=== PATIENT | male | born 1990 | race American Indian/Alaskan Native ===

== ENCOUNTER 2019-05-20 22:23 | Inpatient (IN) | payer MEDICARE, MEDICAID, SELFPAY ==
[2019-05-20 22:23] VITALS: BP 122/75; PULSE 71; RESP 18; TEMP 37.3; O2SAT 98
[2019-05-21] VITALS (10 sets, daily range): BP systolic 108–131; BP diastolic 52–65; PULSE 72–92; RESP 16–20; TEMP 36.8–37.9; O2SAT 96–99; BMI 22.6
[2019-05-21] MEDS: ONDANSETRON 4 MG ODT SL (00:06)
--- NOTE | 2019-05-21 01:59 | DI.CT.S_ITS ---
PROCEDURE: CT FACIAL BONES W CON INDICATIONS: swollen right upper eye with multiple facial abrasions TECHNIQUE: After the administration of intravenous contrast, 2.5 mm axial sections acquired from the mid-neck to the frontal sinuses, with coronal and sagittal reformats. For radiation dose reduction, the following was used: automated exposure control, adjustment of mA and/or kV according to patient size. COMPARISON: None. FINDINGS: Image quality: Excellent. Soft tissues: There is marked soft tissue edema with mild skin thickening involving the right periorbital soft tissues and bridge of the nose without organized fluid collection/abscess formation. The retrobulbar structures are unremarkable. Inflammatory changes are preseptal in location. Orbits and globes are intact. Normal appearance of the extraocular muscles. No enlarged lymph nodes. Vascular: Visualized vascular structures appear patent throughout. Bony vascular foramina and canals appear normal. Bones: Facial bones appear intact, without fractures, erosions, or destruction. Visualized portions of the skull base and auditory canals also appear normal. Sinuses: Mild mucosal thickening of the left maxillary sinus. Minimal right maxillary sinus because of thickening. Remainder of the paranasal sinuses appear clear. Mastoid air cells are well-aerated. The ostiomeatal complex is patent bilaterally with small left-sided spurring of the osseous nasal septum. IMPRESSION: 1. Findings compatible with right periorbital cellulitis. No abscess formation. 2. Mild left and minimal right bilateral maxillary sinus disease. No significant discrepancy with the shift superintendent radiology preliminary report. Dictated by: Giorgi Garner M.D. on 05/21/2019 at 7:33 Approved by: Giorgi Garner M.D. on 05/21/2019 at 7:42
[2019-05-21 02:49] LABS: Add Manual Diff / Slide Review NO; Basophils Absolute Auto 0 /uL (0-100); Basophils Percent Auto 0.5 % (0-2); Eosinophils Absolute Auto 100 /uL (0-450); Eosinophils Percent Auto 1.1 % (2-4); Hemoglobin 13.8 g/dL (13.5-17.5); Lymphocytes Absolute Auto 2200 /uL (1100-4500); Lymphocytes Percent Auto 29.3 % (25-40); Mean Corpuscular HGB Conc 33.5 % (30-36); Mean Corpuscular Hemoglobin 28.2 PG (26-34); Mean Corpuscular Volume 83.9 fL (80-100); Monocytes Absolute Auto 600 /uL (0-900); Monocytes Percent Auto 8.7 % (3-14); Neutrophils Absolute Auto 4400 /uL (1500-7000); Neutrophils Percent Auto 60.4 % (50-75); Platelet Count 220 X10^3/uL (150-400); Red Blood Cell Count 4.88 X10^6/uL (4.5-5.9); Red Cell Distribution Width 13.4 % (11.6-14.8); White Blood Cell Count 7.4 X10^3/uL (4.5-11.0)
[2019-05-21] MEDS: VANCOMYCIN 1,000 MG/200 ML PIGGYBACK 200 MG IV ×3 (02:52→18:57)
[2019-05-21] MEDS: KETOROLAC 60 MG/2 ML VIAL 30 MG IV (02:53)
[2019-05-21 03:06] LABS: Alanine Aminotransferase 12 IU/L (<50); Albumin 4.2 g/dL (3.5-5.0); Albumin Globulin Ratio 1.3 (1.0-2.8); Alkaline Phosphatase 65 U/L (38-126); Aspartate Aminotransferase 26 IU/L (17-59); BUN Creatinine Ratio 15.7 (6-22); Bilirubin Total 0.6 mg/dL (0.2-1.3); Blood Urea Nitrogen 11 mg/dL (9-20); C-Reactive Protein Quant 1.4 mg/dL (<1.0); Calcium 9.3 mg/dL (8.4-10.2); Carbon Dioxide 29 mmol/L (22-32); Chloride 101 mmol/L (98-107); Creatine Kinase 153 U/L (55-170); Estimated Glomerular Filt Rate > 60.0 mL/min (>60); Globulin 3.2 g/dL (1.7-4.1); Glucose 101 mg/dL (70-100); HEMOLYSIS < 15 (0-50); Sodium 139 mmol/L (137-145); Total Protein 7.4 g/dL (6.3-8.2)
[2019-05-21 03:08] LABS: Erythrocyte Sedimentation Rate 10 MM/HR (0-15)
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
[2019-05-21] MEDS: methylPREDNISolone 125 MG/2 ML VIAL IV (04:45)
[2019-05-21] MEDS: CEFTRIAXONE 2 GM/50 ML FROZ.PIGGY IV (05:21)
[2019-05-21] MEDS: metroNIDAZOLE 1,000 MG/200 ML PIGGYBACK 200 MG IV (06:07)
--- NOTE | 2019-05-21 08:38 | PC.NURSE ---
pt sleeping, with symmetrical respirations, infusing antibiotic.
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
[2019-05-21 11:20] LABS: Add Manual Diff / Slide Review NO; Basophils Absolute Auto 0 /uL (0-100); Basophils Percent Auto 0.1 % (0-2); Eosinophils Absolute Auto 0 /uL (0-450); Eosinophils Percent Auto 0.3 % (2-4); Lymphocytes Absolute Auto 500 /uL (1100-4500); Lymphocytes Percent Auto 6.8 % (25-40); Mean Corpuscular HGB Conc 33.2 % (30-36); Mean Corpuscular Volume 84.3 fL (80-100); Monocytes Absolute Auto 100 /uL (0-900); Monocytes Percent Auto 0.9 % (3-14); Neutrophils Absolute Auto 7100 /uL (1500-7000); Neutrophils Percent Auto 91.9 % (50-75); Platelet Count 224 X10^3/uL (150-400); Red Blood Cell Count 4.98 X10^6/uL (4.5-5.9); Red Cell Distribution Width 13.9 % (11.6-14.8); White Blood Cell Count 7.7 X10^3/uL (4.5-11.0)
[2019-05-21] MEDS: AMPICILLIN/SULBACTAM 3 GM 3 GM in SODIUM CHLORIDE 0.9% 100 ML IV ×3 (11:47→22:33)
[2019-05-21] MEDS: OXYCODONE/ACETAMINOPHEN 5/325 TABLET 2 TAB PO ×3 (12:50→21:33)
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
[2019-05-21 18:29] LABS: Bacteria Urine None Seen
[2019-05-21 18:39] LABS: Culture Indicated Urine Cult Not Indicated; RBC Urine 0-1/HPF (0-5/HPF); Squamous Epithelial Cell Urine 0-1 /HPF (0-5/HPF); WBC Urine 0-1/HPF (0-5/HPF)
--- NOTE | 2019-05-21 19:57 | PC.NURSE ---
A&OX4. pain controlled with with percocet. R.eye periorbital edema offered ice pack, pt refused. R.eye lid is pink, slightly warm to touch. independent in his room.
[2019-05-21] MEDS: ACETAMINOPHEN 325 MG TABLET 650 MG PO (20:03)
[2019-05-22] MEDS: VANCOMYCIN 1,000 MG/200 ML PIGGYBACK 200 MG IV ×3 (00:13→11:46)
[2019-05-22] MEDS: OXYCODONE/ACETAMINOPHEN 5/325 TABLET 2 TAB PO (01:53)
[2019-05-22] MEDS: AMPICILLIN/SULBACTAM 3 GM 3 GM in SODIUM CHLORIDE 0.9% 100 ML IV ×2 (04:57→10:18)
[2019-05-22 05:57] LABS: Vancomycin Trough 14.3 ug/mL (10-20)
[2019-05-22] MEDS: HYDROCODONE/ACET 5/325 TABLET 1 TAB PO ×2 (06:02→10:34)
[2019-05-22 07:47] VITALS: BP 105/58; PULSE 72; RESP 14; TEMP 36.6; O2SAT 97
[2019-05-22 11:56] VITALS: BMI 22.6
--- NOTE | 2019-05-22 12:36 | PM.DS.1 ---
History of Present Illness History of Present Illness Date Patient Seen: 05/22/19 Time Patient Seen: 12:36 Chief complaint: Rt eye infection Narrative: As per Dr. Lopez, The patient is a 29-year-old male with no prior past medical history who presents with right eye swelling and pain. Patient states he was bit by a bug about 2 days prior to admission. He expressed pus from the area. Then he noted swelling and redness of the eyelid. He presented to the emergency department for incision and drainage. He denies any trauma to the eyelid. The patient did undergo CT scanning of the right eye. There was no evidence of abscess. There was no evidence of orbital involvement. The CT of the eye revealed preseptal cellulitis. The patient is admitted to the hospital for IV antibiotics and ongoing treatment. He does report having some dull pain in the right eye. He has had no fever although here noted to have a temperature of 99?. He denies any nausea vomiting or diarrhea. He cannot recall any prior history of medical problems. He denies any vomiting blood blood out of his bottom dysuria hematuria pyuria joint pains or headache. He denies any shortness of breath. Discharge Providers Provider Date of admission: 05/21/19 06:40 Discharge Date: 03/21/20 Consults: 05/21/19 10:02 Consult to Dietitian, Adult Routine Comment: Reason For Exam: score high risk Discharge provider: Eyal Ayala DO Summary Hospital Course Discharge Diagnosis: 1. Preseptal cellulitis, acute, present on admission -Findings compatible with right periorbital cellulitis. No abscess formation.2. Mild left and minimal right bilateral maxillary sinus disease. -normal white -low-grade fever noted -no evidence of abscess formation, or significant sinus disease, orbital involvement not recognize 2. Mild maxillary sinusitis - this was adequately covered with unasyn . 3. History of substance abuse, present on admission, chronic - Hospital Course: 1. Preseptal cellulitis, acute, present on admission -Findings on CT compatible with right periorbital / preseptal cellulitis. No abscess formation. - patient improved rapidly with unasyn and vancomycin and was stable for discharge the following day. He was discharged on a course of cefdinir and bactrim for a total of 7 days. -patient does not have a PCP, but [facility] recheck of his eye. 2. Mild maxillary sinusitis - this was adequately covered with unasyn. This was seen on CT imaging. His antibiotics will cover sinusitis. 3. History of substance abuse, present on admission, chronic - - patient can continue suboxone as an outpatient. Exam Vital Signs (past 8 hours): - 05/22/19 07:47 Temperature 97.9 F Pulse Rate 72 Respiratory Rate 14 Blood Pressure 105/58 L Pulse Oximetry 97 Oxygen Delivery Method Room Air Oxygen Flow Rate 0 Narrative Exam Narrative: General: Well appearing male, slightly disheveled. Cooperative. HEENT: Normocephalic, right eye reveals improved swelling, and there is almost no erythema, no warmth, there was not tenderness. There is no pus expressed, there is no fluctuance noted. Extraocular muscles are intact. Oropharynx reveals poor dentition, there are moist mucous membranes, no exudates noted Neck: Supple without adenopathy, no thyromegaly noted Lungs: Clear to auscultation bilaterally. No accessory muscle use. Cardiac exam: Regular rate and rhythm normal S1-S2 Abdomen: Soft nontender nondistended no hepatosplenomegaly Extremities no edema Neuro exam: Nonfocal Objective Labs Result Diagrams: 05/21/19 11:10 05/21/19 02:40 Labs: Laboratory Results - last 24 hr 05/21/19 05/22/19 18:21 05:26 Urine RBC 0-1/hpf Urine WBC 0-1/hpf Ur Squamous Epith Cells 0-1 /hpf Urine Bacteria None seen Ur Culture Indicated? Cult not indicated Vancomycin Trough 14.3 Discharge Plan Discharge Plan Patient Disposition: Home Discharge comment: You were admitted to the hospital for cellulitis around your right eye. This improved with IV antibiotics and you will complete therapy with oral antibiotics at home. There are two antibiotics, both you should take twice per day for 7 days. Please follow up with your clinic in about 1 week to check your response to treatment. If your infection gets worse at home please return for evaluation for a possible developing abscess. Discharge orders & Medications Prescriptions: New sulfamethoxazole-trimethoprim [Bactrim DS] 800-160 mg tablet 1 tab PO BID 7 Days Qty: 14 RF: 0 cefdinir 300 mg capsule 300 mg PO BID 7 Days Qty: 14 RF: 0 Continued buprenorphine-naloxone [Suboxone] 12-3 mg Film 2 film BUCCAL DAILY RF: 0 Discharge Health Status Health Concerns: Pre-septal cellulitis Diet/Activity/Treatments Diet: Diet as Tolerated Activity: As tolerated Visit Report/Discharge Packet Instructions: DI for Orbital Cellulitis Discharges patient from system. Discharge Date/Time: 05/22/19 16:18
[2019-05-22] MEDS: BUPRENORPHINE/NALOXONE 8MG/2MG 1 TAB 1.5 TAB SL (13:07)
--- NOTE | 2019-05-22 13:12 | PC.NURSE ---
Patient stated that he felt like he was withdrawing. Provider was notified and ordered Suboxone. Patient given Suboxone at 1310.
--- NOTE | 2019-05-22 13:14 | PC.NURSE ---
Skin/Pain: SIm starting to go through withdrawl. Pt reports he takes suboxone daily. Has not had a dose since admitted. Dr. Ayala made aware and pt given a dose, will see how he feels in the next 30mins to hour. Pt reports he is hoping to d/c home today, MD is aware and will be checking on pt. Face is less swollen, eye less blurry vision, still has some tearing, warp dyeing tender. 3 scabbed abrasions on face are dry. Vicodin given for pain and has been effective. Cont w/poc.
--- NOTE | 2019-05-22 13:22 | CM.DANOTE ---
DCP Brief Assessment Note: Patient is a 29 year old male who was admitted on 05/21/19 for Eye Infection. Pt has [facility] and [facility] for insurance and his PCP is not listed. EMR was reviewed. Per MD, pt currently receiving IV-Abx for cellulitis and pt reacting well to the medication and infection appears to be improving and pt to have a couple more doses of IV-Abx today before discharging home today on oral abx. No identified barriers to discharge. Per RN, pt independent in room and no concerns at this time. Pt resides in [facility] with his significant other and is independent with ADL's. No bedside assessment completed due to triage needs and no identified barriers. Plan: Patient to d/c home today on oral abx via friend POV and no SW needs at this time. JUWAN Conte
--- NOTE | 2019-05-22 15:59 | CM.DPNOTE ---
DC Note: DC order in place and OLAF Wynne asks if someone can arrange transport for pt home to [place]? Pt has diminished vision in one eye and an infection in the other which would make it very difficult to drive or take the bus. Pt is unable to pay for taxi. Nellie Maria placed call to Medicaid transport and pt does qualify. Pt arrived via EMS. Completed and faxed Medicaid Transportation Services form and faxed to [phone]. [place] back from Andre gutiérrez/ Medicaid transport; taxi will p/u at 1630 outside of the ER entrance. Po abx have been electronically sent to [facility]. Updated OLAF Marie and pt, pt appreciative, indp in room and ready forDC JUWAN Hooks
--- NOTE | 2019-05-22 16:15 | DIET.PN ---
Dietary Progress Note Assessment: 29y M being treated for eye infection secondary to bug bite referred to nutrition for low MNA. Pt is packed up and ready to leave, on phone with friend. Pt wants to leave but his family is encouraging him to stay for IV abx. He is bothered by being woken up early for blood work. Pt has poor dentation but is consuming 100% of meal trays. HT: 167.6cm WT: 63.5kg BMI: 22.6 Labs: CRP 1.4 H MNA: 9 at risk for malnutrition Asa: 22 Nutrition Diagnosis:none Interventions: Recc pt moderate sugar consumption to aid wound healing and ensure protein portion with each meal. Diet Order:general
--- NOTE | 2019-05-22 16:17 | PC.NURSE ---
A&Ox4. PIV removed. discharge instructions given to patient. pt refused wheelchair. pt escorted by [employer] down stairs, cab will vegetable picker patient in front of ER.
== END 2019-05-22 16:18 | disposition home or self-care (01) | DRG 603 ==
LOC: ED 05-21 06:28 → AC 05-21 06:57
PROVIDERS: Internal Medicine; Admitting Provider Nurse Practitioner Adult Health; Emergency Provider Emergency Medicine; Visit Provider Nurse Practitioner Adult Health
DX: L03.213 Periorbital cellulitis (principal); J32.0 Chronic maxillary sinusitis; Z87.891 Personal history of nicotine dependence
CPT/HCPCS: 36415; 70487; 80053; 80202; 81015; 82550; 85025; 85651; 86140; 96365; 96366; 96367; 96375; 99284; J0295; J0696; J1885; J2930; Q9967